=== PATIENT | female | born 1960 | race Caucasian/White ===

== ENCOUNTER 2018-07-28 06:32 | Day surgery (SDC) | payer OTHER, SELFPAY ==
[2018-07-28] VITALS (10 sets, daily range): BP systolic 99–121; BP diastolic 60–75; PULSE 54–78; RESP 12–16; TEMP 36–36.9; O2SAT 97–100; BMI 18.9
--- NOTE | 2018-07-28 | DI.RAD.S_ITS ---
PROCEDURE: XR LUMBAR SPINE 2-3V INDICATIONS: MICRO DISC ECTOMY TECHNIQUE: 2 intraoperative fluoroscopic views of the lumbar spine were acquired. COMPARISON: None. FINDINGS: Bones: Intraoperative fluoroscopic images of lower lumbar spine shows surgical instrument placed posteriorly at what appears to be L4-5 level. Soft tissues: Overlying bowel gas pattern is normal. No suspicious soft tissue calcifications. IMPRESSION: Fluoroscopy guidance was provided intraoperatively for microdiscectomy of lower lumbar spine. Dictated by: Bryce Orellana M.D. on 07/28/2018 at 10:55 Approved by: Bryce Orellana M.D. on 07/28/2018 at 10:56
[2018-07-28] MEDS: LACTATED RINGERS 1,000 ML 42 ML IV (07:05)
[2018-07-28] MEDS: CEFAZOLIN 1 GM/50 ML FROZ.PIGGY IV (07:58)
--- NOTE | 2018-07-28 07:58 | PM.PREOP ---
Pre-operative Note Interval Note Pre-op Check: Yes History & Physical Reviewed by Physician, Yes Exam Performed and Yes History & Physical exam performed today by Physician Changes: No
--- NOTE | 2018-07-28 08:24 | SUR.OPER ---
Prone on spine table, head in foam head support, padded chest and pelvic supports, gel pad at knees, lower legs supported by pillows; nipples, genitalia and toes free of pressure, arms secured on foam padded arm boards at <90 degrees abduction. Tape over blanket at thigh secured to table.
[2018-07-28] MEDS: methylPREDNISolone acet DEPO 40 MG/ML VIAL INJ (08:41)
[2018-07-28] MEDS: BUPIVACAINE 0.25% W/ EPI VIAL 30 ML INJ (08:41)
--- NOTE | 2018-07-28 09:01 | PM.OP.1 ---
Operative Date/Time/Diagnoses Date of procedure: 07/28/18 Time of procedure: 08:01 Pre-op diagnosis: 1. L4-5 lumbar disc herniation 2. L4-5 spinal stenosis Post-op diagnosis: same Procedure & Clinicians Procedure: 1. L4-5 right microdiscectomy 2. Utilization of microsurgical technique and operating microscope Same procedure as scheduled: Yes Indications: Patient has been having chronic back pain and worsening lumbar radiculopathy. Patient failed multiple conservative management with worsening pain weakness and numbness in her lower extremity. Patient has been having difficulty performing activity of daily living. After discussing risks benefits of treatment options, patient elected proceed with surgery. Surgeon: Maribel Jay Firmware Manager: Maribel Sterling Click Yes if Unassisted: No Anesthesia Type: General Operative Notes Closure Type: primary Specimen(s): none sent Estimated Blood Loss (mL): 10 Blood products transfused: none Procedure in detail: Patient was seen in the preoperative area. Risks and benefits of the surgery was discussed with the patient. Informed consent was obtained from the patient and placed in the chart. Surgical site was marked. Patient was taken to the operative room. General anesthesia was administered. Prophylactic antibiotic was given to the patient less than 30 min before the incision was made. Patient was placed into a prone position on the Foreign table. Patient's back was then prepped and draped in the sterile fashion. Time-out was performed at this time. Using AP and lateral C-arm imaging the interval between L4-5 was identified and marked on patient's back. A 1 inch incision 1 in from midline was made on the right side. The fascia was incised in line with skin incision. Globus MARS retractors was placed inside the incision and docked onto the L4 lamina. Using microsurgical technique and operating microscope, a L4 laminotomy was performed using a Kerrison rongeur. Liagamentum flavum was resected at the site of the laminotomy. The disc space at L4-5 was identified. Microdiscectomy was performed by incising the annulus with #11 blade. Microcurettes and pituitary was used to removed herniated disc fragments of disc from the epidural space. After the microdiskectomy was completed, the area medial lateral superior and inferior to the area of the microdiskectomy was inspected and explored using a micro curette. No other impinging structure was identified. The wound was then irrigated with sterile normal saline. 40 mg Depo-Medrol was placed into the epidural space. The deep fascia was closed with 1-0 Vicryl. The subcutaneous tissue was closed with 2-0 Vicryl. The skin was closed with 4-0 Monocryl. Patient tolerated the procedure well. There were no complications. Patient was transferred recovery room in stable condition. Complications: none Condition: stable Disposition: same day surgery Plan for aftercare: D/c home
[2018-07-28] MEDS: fentaNYL 100 MCG/2 ML INJ 25 MCG IV (09:15)
[2018-07-28] MEDS: METOCLOPRAMIDE 10 MG/2 ML INJ IV (09:20)
[2018-07-28] MEDS: MEPERIDINE 50 MG/ML IV (09:30)
--- NOTE | 2018-07-28 09:41 | SUR.PHASEI ---
Sleepy in PACU but easily awakened by voice. Complaints of nausea, pain and shakiness all resolved or improved after medication however slower to fully awaken due to meds. VSS.
[2018-07-28] MEDS: OXYCODONE/ACETAMINOPHEN 5/325 TABLET 1 TAB PO (10:07)
--- NOTE | 2018-07-28 10:30 | SUR.PHASEII ---
AFTER PT DC TO HOME IT WAS DISCOVERED PT WAS SENT HOME WITH LAMINECTOMY INFORMATION OPPOSED TO MICRODISCECTOMY INFORMATION. CALLED AND SPOKE WITH PT SIGNIFICANT OTHER AND ADVISED HIM OF THIS. OFFERED TO MAIL THIS INFORMATION TO PT, PT STATED THIS WASN'T NECESSARY.
== END 2018-07-28 10:26 | disposition home or self-care (01) ==
PROVIDERS: Visit Provider Orthopaedic Surgery Orthopaedic Surgery of the Spine
PROC: (CPT 63030; principal; 2018-07-28 07:45)
DX: M51.16 Intervertebral disc disorders with radiculopathy, lumbar region (principal); M48.061 Spinal stenosis, lumbar region without neurogenic claudication; X50.0XXA Overexertion from strenuous movement or load, initial encounter; Z87.891 Personal history of nicotine dependence
CPT/HCPCS: 63030; 72100; 76000; J1030; J1100; J1885; J2175; J2250; J2405; J2704; J2765; J3010